=== PATIENT | female | born 1940 | race Caucasian/White ===

== ENCOUNTER → 2019-06-22 | Outpatient (CLI) | payer BC ==
--- NOTE | 2019-06-22 16:22 | PCVCIMAG ---
EXAM: BILATERAL CAROTID DUPLEX INDICATION: Carotid Occlusive Disease. FINDINGS: Doppler Measurements (centimeters per second): RIGHT: Peak CCA-53, Peak ECA-82, Diastolic ICA-31, Peak ICA-92, ICA/CCA Ratio-1.7. LEFT: Peak CCA-61, Peak ECA-86, Diastolic ICA-27, Peak ICA-78, ICA/CCA Ratio-1.3. RIGHT CAROTID: The carotid bulb has mild plaque. The proximal internal carotid artery shows <40% stenosis. The common carotid artery shows no significant stenosis. The external carotid artery shows no significant stenosis. LEFT CAROTID: The carotid bulb has mild plaque. The proximal internal carotid artery shows <40% stenosis. The common carotid artery shows no significant stenosis. The external carotid artery shows no significant stenosis. Antegrade flow in both vertebral arteries. IMPRESSION: <40% stenosis of the right internal carotid artery with mild plaque. <40% stenosis of the left internal carotid artery with mild plaque. LOC:[id number]
--- NOTE | 2019-06-22 18:33 | PCVCIMAG ---
APPROVED REPORT Study performed: 06/22/2019 15:28:18 EXAM: Comprehensive 2D, Doppler, and color-flow Echocardiogram Patient Location: Echo lab Room #: 3Status: routine BSA: 1.72 HR: 73 bpmBP: 157/94 mmHg Rhythm: NSR Other Information Study Quality: Good Risk Factors: Cardiac Risk Factors: HTN, Hyperlipidemia, DM, Elevated CA Score, FHX of CAD Indications CAD 2D Dimensions IVSd: 9.38 (7-11mm)LVOT Diam: 21.00 (18-24mm) LVDd: 38.99 mm PWd: 9.18 (7-11mm)Ascending Ao: 35.34 (22-36mm) LVDs: 24.83 (25-40mm) Left Atrium: 35.82 (27-40mm) Aortic Root: 32.31 mm LV Single Plane 4CH: 63.19 % LV Single Plane 2CH: 69.02 % Biplane EF: 66.2 % Volumes Left Atrial Volume (Systole) Single Plane 4CH: 33.87 mLSingle Plane 2CH: 28.17 mL LA ESV Index: 18.00 mL/m2 Aortic Valve AoV Peak Jean.: 1.21 m/s AO Peak Gr.: 5.86 mmHgLVOT Max P.74 mmHg LVOT Max V: 0.83 m/s STORM Vmax: 2.33 cm2 Mitral Valve E/A Ratio: 0.6 MV Decel. Time: 207.30 ms MV E Max Jean.: 0.59 m/s MV A Jean.: 0.97 m/s IVRT: 62.28 ms TDI E/Lateral E': 11.80E/Medial E': 11.80 Medial E' Jean.: 0.05 m/s Lateral E' Jean.: 0.05 m/s Pulmonary Valve PV Peak Jean.: 0.88 m/sPV Peak Gr.: 3.10 mmHg Pulmonary Vein P Vein S: 0.53 m/sP Vein A: 0.26 m/s P Vein D: 0.25 m/sP Vein A Dur.: 103.8 msec P Vein S/D Ratio: 2.12 Tricuspid Valve TR Peak Jean.: 1.95 m/sRAP Estimate: 7.00 mmHg TR Peak Gr.: 15.24 mmHg PA Pressure: 22.00 mmHg Left Ventricle The left ventricle is normal size. There is normal LV segmental wall motion. There is normal left ventricular wall thickness. Left ventricular systolic function is normal. The left ventricular ejection fraction is within the normal range. LVEF is 65%. Mild diastolic dysfunction is present (impaired relaxation pattern). Right Ventricle The right ventricle is normal size. The right ventricular systolic function is normal. Atria The left atrium size is normal. The right atrium size is normal. Aortic Valve The aortic valve is normal in structure. No aortic regurgitation is present. There is no aortic valvular stenosis. Mitral Valve The mitral valve is normal in structure. There is no mitral valve regurgitation noted. No evidence of mitral valve stenosis. Tricuspid Valve The tricuspid valve is normal in structure. Trace tricuspid regurgitation. Pulmonary artery pressure is 22 mmHg. Pulmonic Valve The pulmonary valve is normal in structure. There is no pulmonic valvular regurgitation. Great Vessels The aortic root is normal in size. The ascending aorta is normal in size. IVC is normal in size and collapses >50% with inspiration. Pericardium There is no pericardial effusion. <Conclusion> The left ventricle is normal size. LVEF is 65%. Mild diastolic dysfunction is present (impaired relaxation pattern). The right ventricle is normal size. The left atrium size is normal. The aortic valve is normal in structure. There is no mitral valve regurgitation noted. The mitral valve is normal in structure. Trace tricuspid regurgitation. Pulmonary artery pressure is 22 mmHg. The aortic root is normal in size. There is no pericardial effusion.
== END | disposition home or self-care (01) ==
LOC: PCVCIMAG 15:20
PROVIDERS: ATTEND Internal Medicine Cardiovascular Disease
DX: I65.23 Occlusion and stenosis of bilateral carotid arteries (principal); E10.8 Type 1 diabetes mellitus with unspecified complications; R93.1 Abnormal findings on diagnostic imaging of heart and coronary circulation; I10 Essential (primary) hypertension
CPT/HCPCS: 93306; 93880

== ENCOUNTER → 2019-07-04 | Outpatient (CLI) | payer BC ==
[~2019-07-04] MED LIST: REGADENOSON 0.4 MG/5 ML DISP.SYRIN. IV ONE
--- NOTE | 2019-07-05 16:50 | PCVCIMAG ---
APPROVED REPORT Imaging Protocol: Rest Tc-99m/Stress Tc-99m 1 day Study performed: 07/04/2019 13:29:52 Indication: CAD, Calcium Score Patient Location: Out-Patient Stress Nurse: Mili Dupont RN, Christina Torres RN NC Tech:Dawson EncinasJA mcbrideMT Ht: 5 ft 3 in Wt: 152 lbs BSA: 1.72 m2 HR: 78 bpm BP: 181/87 mmHg BMI: 26.9 Rhythm: Sinus Rhythm Medical History Medical History: Age, HLP, HTN, DM, Family Hx CAD Medications: HCTZ, Ramipril Allergies: No known drug allergies Exercise History: Sedentary Physical Disabilities: Knees Resting Data Rest SPECT myocardial perfusion imaging was performed in supine position 45 minutes following the intravenous injection of 11.0 mCi of Tc-99m Sestamibi. Time of rest injection: 1320 Date: 07/04/2019 Administration Route: IV Administration Site: Left AC Pharmacologic Stress Pharmacologic stress test was performed by injecting Regadenoson 0.4 mg IV push over 10-15 seconds immediately followed by the intravenous injection of 32.9 mCi of Tc-99m Sestamibi. Time of stress injection: 1430 Date: 07/04/2019 Administration Route: IV Administration Site: Left AC Gated Stress SPECT was performed 45 minutes after stress injection. The images were gated to evaluate regional wall motion and calculate left ventricular ejection fraction. Stress Test Details Stress Test: Pharmacologic stress testing performed using 0.4 mg of regadenoson per 5 mL given IV over 10 seconds. Reason for pharmacologic stress test: knee problems. HRMax Heart Rate (APMHR): 143 bpm Resting HR: 78 bpmTarget HR (85% APMHR): 121 bpm Max HR Achieved: 120 bpm % of APMHR: 83 Recovery HR: 98 bpm BP Resting BP: 181/87 mmHg Max BP: 161/77 mmHg Recovery BP: 163/75 mmHg ECG Resting ECG: Sinus Rhythm Stress ECG: Sinus Tachycardia Arrhythmia: None Recovery ECG: Sinus Rhythm Clinical Reason for Termination: Completed protocol Stress Symptoms: Head Fullness Symptoms resolved with caffeine. Stress ECG Conclusion ECG: Non-ischemic Study Quality Study: Good Study Data Post stress, the left ventricular ejection was 67%.. SSS: 0 SRS: 1 SDS: 0 TID = 0.83. Perfusion No evidence of stress induced ischemia or prior myocardial infarction. Wall Motion Normal left ventricular size and function with no regional wall motion abnormalities. Nuclear Conclusion No evidence of stress induced ischemia or prior myocardial infarction. Normal left ventricular size and function with no regional wall motion abnormalities. Post stress, the left ventricular ejection was 67%. No prior study available for comparison. Interpreted by: Mumtaz Gracia MD Electronically Approved: 07/04/2019 17:44:03 <Conclusion> ECG: Non-ischemic
== END | disposition home or self-care (01) ==
LOC: PCVCIMAG 13:09
PROVIDERS: ATTEND Internal Medicine Cardiovascular Disease
DX: I25.10 Atherosclerotic heart disease of native coronary artery without angina pectoris (principal); R93.1 Abnormal findings on diagnostic imaging of heart and coronary circulation; E11.9 Type 2 diabetes mellitus without complications; E78.5 Hyperlipidemia, unspecified; I10 Essential (primary) hypertension; M19.90 Unspecified osteoarthritis, unspecified site; E03.9 Hypothyroidism, unspecified
CPT/HCPCS: 78452; 93017; A9500; J2785